=== PATIENT | male | born 1970 | race Two or more races ===

== ENCOUNTER 2016-10-11 20:52 | Emergency (ER) | payer SELFPAY ==
--- NOTE | 2016-10-11 20:58 | PDOC ---
Rapid Medical Evaluation Time Seen by Provider: 10/11/16 20:56 Medical Evaluation: 10/11/16 20:56 46 yo M c/o dizziness with slight nausea x9hrs. At ~0240hrs, pt "passed out" for "seconds" Diaphoresis today with chills today. Denies cp/ sob/ abd pain.
[2016-10-11 21:00] VITALS: BP 147/93; PULSE 68; TEMP 97.3; BMI 27.3
--- NOTE | 2016-10-11 21:46 | PDOC ---
History of Present Illness - General History Source: Patient Exam Limitations: No Limitations - History of Present Illness Initial Comments: 10/11/16 22:05 The patient is a 46 year old male with significant past medical history of asthma who presents to the ED with near syncope last night. Patient reports he ate a meatball last night and 4 hours later he started to feel dizzy with some generalized weakness and states he almost passed out, but not true LOC or fall. Patient reports he developed nausea today with several episodes of nonbloody vomiting and lack of appetite. He denies abdominal pain and diarrhea. He also has complaints of diaphoresis today with chills. He denies fever, cough , lightheadedness, SOB, chest pain, jaw pain, shoulder pain, or arm pain. Allergies: NKDA Social History: No alcohol, tobacco, or drug use reported. Past Surgical History: None reported PCP: Dr. Allyson Hinojosa <Liliana Romo - Last Filed: 10/11/16 22:04> - General History Source: Patient <DionisioPierre corbett - Last Filed: 10/11/16 23:28> - General Chief Complaint: Syncope/Near Syncope Stated Complaint: SYNCOPE/NEAR SYNCOPE Time Seen by Provider: 10/11/16 20:56 Past History <Liliana Romo - Last Filed: 10/11/16 22:04> - Past Medical History Asthma: Yes - Psycho/Social/Smoking Cessation Hx Suicidal Ideation: No Smoking History: Never smoked Hx Alcohol Use: No Drug/Substance Use Hx: No <Pierre Juarez - Last Filed: 10/11/16 23:28> - Past Medical History Allergies/Adverse Reactions: Allergies Allergy/AdvReac Type Severity Reaction Status Date / Time No Known Allergies Allergy Verified 10/11/16 20:57 Home Medications: Ambulatory Orders NK [No Known Home Medication] 10/11/16 Review of Systems - Review of Systems Able to Perform ROS?: Yes Comments:: 10/11/16 22:05 +generalized weakness, lack of appetite, chills, diaphoresis Absent: fever, no fatigue EYES: Absent: visual changes ENT: Absent: ear pain, no sore throat CARDIOVASCULAR: +near syncope Absent: chest pain, no palpitations RESPIRATORY: Absent: cough, no SOB GI: +nausea, vomiting Absent: abdominal pain, no constipation, no diarrhea GENITOURINARY: Absent: dysuria, no frequency, no hematuria MUSKULOSKELETAL: Absent: back pain, no arthralgia, no myalgia SKIN: Absent: rash NEURO: +dizziness Absent: headache <Liliana Romo - Last Filed: 10/11/16 22:04> *Physical Exam - Vital Signs Last Vital Signs Temp Pulse Resp BP Pulse Ox 97.3 F L 68 18 147/93 100 10/11/16 20:58 10/11/16 20:58 10/11/16 20:58 10/11/16 20:58 10/11/16 20:58 - Physical Exam Comments: 10/11/16 22:05 GENERAL: Well-appearing, well-nourished. No apparent distress. HEENT: Normocephalic, atraumatic. PERRL, EOM intact. No conjunctival pallor. Sclera are non-icteric. Dry mucous membranes. CARDIOVASCULAR: Normal S1, S2. Regular rate and rhythm. PULMONARY: Clear to auscultation bilaterally. ABDOMEN: Soft, non-distended, non-tender. EXTREMITIES: Normal ROM in all four extremities. No gross deformities. SKIN: Warm, dry. No rash NEUROLOGICAL: No focal neurological deficits. <Liliana Romo - Last Filed: 10/11/16 22:04> - Vital Signs Last Vital Signs Temp Pulse Resp BP Pulse Ox 97.3 F L 68 18 147/93 100 10/11/16 20:58 10/11/16 20:58 10/11/16 20:58 10/11/16 20:58 10/11/16 20:58 <Pierre Juarez - Last Filed: 10/11/16 23:28> ED Treatment Course - LABORATORY CBC & Chemistry Diagram: 10/11/16 22:25 10/11/16 22:25 <Pierre Juarez - Last Filed: 10/11/16 23:28> Medical Decision Making - Medical Decision Making 10/11/16 23:27 Dr. Juarez: The scribe's documentation has been prepared under my direction and personally reviewed by me in its entirery. I confirm that the note above accurately reflects all work, treatment, procedures, and medical decision making performed by me. Pt feels better after IVF. Pt to follow up with his pcp as needed. <Pierre Juarez - Last Filed: 10/11/16 23:28> *DC/Admit/Observation/Transfer - Attestations Scribe Attestion: 10/11/16 22:05 Documentation prepared by Liliana Romo, acting as medical device sales for Pierre Juarez MD <Liliana Romo - Last Filed: 10/11/16 22:04> - Discharge Dispostion Admit: No <Pierre Juarez - Last Filed: 10/11/16 23:28> Diagnosis at time of Disposition: Vomiting Qualifiers: Vomiting type: unspecified Vomiting Intractability: non-intractable Nausea presence: with nausea Qualified Code(s): R11.2 - Nausea with vomiting, unspecified - Discharge Dispostion Disposition: HOME Condition at time of disposition: Improved - Referrals Referrals: Allyson Hinojosa MD [Primary Care Provider] - - Patient Instructions Printed Discharge Instructions: DI for Vomiting -- Adult - Post Discharge Activity Work/School Note: Back to Work
[2016-10-11] MEDS ORDERED: SODIUM CHLORIDE 1,000 ML IV STA ×2 (21:56→21:57)
[2016-10-11] MEDS ORDERED: ONDANSETRON 4 MG/2 ML VIAL IVPUSH STA (21:57)
[2016-10-11] MEDS ORDERED: ONDANSETRON 4 MG/2 ML VIAL ONE (22:22)
[2016-10-11 22:37] LABS: BASOPHIL 0.1 % (0-2.0); EOSINOPHIL 0.3 % (0-4.5); MCH 27.1 pg (25.7-33.7); MCHC 32.7 g/dl (32.0-35.9); MEAN CELL VOLUME 82.8 fl (80-96); MEAN PLT VOLUME 7.5 fl (7.5-11.1); NEUTROPHILS 87.9 % (42.8-82.8); PLATELET COUNT 262 K/MM3 (134-434); RDW 13.3 % (11.9-15.9); WHITE BLOOD COUNT 13.6 K/mm3 (4.0-10.0)
[2016-10-11 23:07] LABS: ALK PHOS 65 U/L (45-117); AMYLASE 57 U/L (25-115); ANION GAP 9 (8-16); BILIRUBIN,TOTAL 0.8 mg/dL (0.2-1.0); CALCIUM 9.4 mg/dL (8.5-10.1); CO2 27 mmol/L (21-32); CREATININE 1.1 mg/dL (0.7-1.3); GLUCOSE,RANDOM 107 mg/dL (74-106); MAGNESIUM 1.9 mg/dL (1.8-2.4); SGOT/AST 15 U/L (15-37); SGPT/ALT 29 U/L (12-78); TOT PROT 7.8 g/dl (6.4-8.2)
== END 2016-10-12 00:22 | disposition home or self-care (01) ==
LOC: JER 20:52
PROC: 3E0337Z Introduction of Electrolytic and Water Balance Substance into Peripheral Vein, Percutaneous Approach (ICD-10-PCS; principal; 2016-10-11)
PROC: 3E033GC Introduction of Other Therapeutic Substance into Peripheral Vein, Percutaneous Approach (ICD-10-PCS; 2016-10-11)
DX: R11.2 Nausea with vomiting, unspecified (principal); J45.909 Unspecified asthma, uncomplicated
CPT/HCPCS: 36415; 80053; 82150; 83690; 83735; 85025; 99281-25